=== PATIENT | female | born 1950 | race Caucasian/White ===

== ENCOUNTER 2021-11-30 20:59 | Emergency (ER) | payer MEDICARE ==
[~2021-11-30] VITALS: Ht 160 cm; Wt 59.4 kg
[~2021-11-30 20:59] MED LIST: ATENOLOL50 MG PO; AZILSARTAN PO; CARAFATE1 GM PO; LODINE400 M1 PO; NORCO 10-325 T1 EACH PO; NORVASC10 MG PO; PHENERGAN25 M3 PO; XANAX1 MG PO; Z TEKTURNA HCT; Z.0.AZOR 5-40 MG T1; Z.0.LEVAQUIN500 MG PO; Z.0.LIPITOR40 MG PO; Z.0.LORTAB 10-5001 E PO; Z.0.LYRICA100 MG PO; Z.0.NEXIUM40 MG PO; Z.0.PLAVIX75 MG PO; Z.0.PREDNISONE20 MG PO; Z.0.ULTRAM50 MG PO; Z.1.HYDROCHLOROTH12. PO; [UNRECOGNIZED DRUG - OTHER]
[2021-11-30 21:40] LABS: BASOPHILS # (AUTO) 0.1 (0.0-0.1); BASOPHILS % 0.6 % (0.0-1.0); EOSINOPHILS # (AUTO) 0.3 (0.0-0.4); EOSINOPHILS % 2.6 % (0.0-6.0); HEMATOCRIT 40.3 % (34.2-44.1); HEMOGLOBIN 13.6 g/dL (12.0-16.0); LYMPHOCYTES # (AUTO) 2.9 (1.0-3.2); LYMPHOCYTES % 27.6 % (18.0-39.1); MEAN CORPUSCULAR HEMOGLOBIN 30.6 pg (28-32); MEAN CORPUSCULAR HGB CONC 33.7 g/dL (31-35); MEAN CORPUSCULAR VOLUME 90.6 fL (81-99); MONOCYTES # (AUTO) 1.1 (0.2-0.8); MONOCYTES % 10.7 % (4.4-11.3); NEUTROPHILS # (AUTO) 6.1 (2.1-6.9); NEUTROPHILS % 57.9 % (38.7-80.0); PLATELET COUNT 259 x10e3/uL (140-360); RED BLOOD COUNT 4.45 x10e6/uL (3.6-5.1); RED CELL DISTRIBUTION WIDTH 13.3 % (11.7-14.4)
[2021-11-30 21:46] LABS: ANION GAP 16.5 mmol/L (8-16); CALCIUM 9.3 mg/dL (8.4-10.2); CREATININE, SERUM 0.92 mg/dL (0.57-1.11); POTASSIUM 4.5 mmol/L (3.5-5.1)
[2021-11-30] MEDS ORDERED: KETOROLAC TROMETHAMINE 30 MG/ML VIAL IV STA (22:02)
[2021-11-30] MEDS ORDERED: MEDROL4 M2 PO (22:52)
[2021-11-30 23:29] VITALS: BP 140/84
== END 2021-11-30 23:15 | disposition home or self-care (01) ==
LOC: ER 21:04
DX: M54.50 Low back pain, unspecified (principal); G89.29 Other chronic pain; E11.65 Type 2 diabetes mellitus with hyperglycemia; I10 Essential (primary) hypertension; E78.5 Hyperlipidemia, unspecified; J44.9 Chronic obstructive pulmonary disease, unspecified; M79.7 Fibromyalgia; Z86.73 Personal history of transient ischemic attack (TIA), and cerebral infarction without residual deficits
CPT/HCPCS: 36415; 72131; 80048; 85025; 99284; J1885